=== PATIENT | male | born 1955 | race Caucasian/White ===

== ENCOUNTER 2022-09-29 07:35 | Day surgery (SDC) | payer OTHER, BC ==
[2022-09-24 13:36] VITALS: BMI 23.6
[2022-09-29] MEDS: PHENYLEPHRINE 2.5% OPTHALMIC DROP 2ML BOTTLE ONE ×3 (08:00→08:10)
[2022-09-29] MEDS: CYCLOPENTOLATE 2% OPHTH SOLN 2 ML BOTTLE ONE ×3 (08:00→08:10)
[2022-09-29] MEDS: CIPROFLOXACIN 0.3% EYE DROPS 5 ML BOTTLE ONE ×3 (08:00→08:10)
[2022-09-29] MEDS: TROPICAMIDE 1% OPHTH SOLN 15 ML BOTTLE ONE ×3 (08:00→08:10)
[2022-09-29] MEDS ORDERED: NEO/POLYMYX B SULF/DEXAMETH OPHTHALMIC 5ML BOTTLE ONE (08:52)
[2022-09-29] MEDS ORDERED: BSS (NA/CA/MG/K) BALANCED SALT SOLUTION OPHTH SOLN 15 ML BOTTLE ONE (08:52)
[2022-09-29] MEDS ORDERED: TETRACAINE 0.5% OPHTH SOLN 2 ML BOTTLE ONE (08:52)
[2022-09-29] MEDS ORDERED: LIDOCAINE 1% P/F 10 MG/ML VIAL ONE (08:52)
[2022-09-29] MEDS ORDERED: CARBACHOL 0.01% INTRA-OCULAR 1.5 ML VIAL ONE (08:52)
[2022-09-29] MEDS ORDERED: ONDANSETRON 4 MG/2 ML VIAL ONE (09:44)
[2022-09-29 10:17] VITALS: TEMP 97.8
[2022-09-29] MEDS ORDERED: MIDAZOLAM HCL 2 MG/2 ML SINGLE DOSE VIAL ONE (10:29)
[2022-09-29 10:48] VITALS: BP 110/65; PULSE 55; RESP 18
== END 2022-09-29 11:25 | disposition home or self-care (01) ==
LOC: FASU 07:35
PROVIDERS: ATTEND Ophthalmology
PROC: 08RJ3JZ Replacement of Right Lens with Synthetic Substitute, Percutaneous Approach (ICD-10-PCS; principal; 2022-09-29 09:43)
DX: H26.8 Other specified cataract (principal)
CPT/HCPCS: 66984; V2632

== ENCOUNTER 2023-05-26 07:46 | Day surgery (SDC) | payer OTHER, BC ==
[2023-05-23 15:07] VITALS: BMI 23.6
[2023-05-26] MEDS ORDERED: MIDAZOLAM HCL 2 MG/2 ML SINGLE DOSE VIAL ONE (07:52)
[2023-05-26] MEDS: TROPICAMIDE 1% OPHTH SOLN 15 ML BOTTLE ONE ×3 (08:20→08:30)
[2023-05-26] MEDS: PHENYLEPHRINE 2.5% OPTHALMIC DROP 2ML BOTTLE ONE ×3 (08:20→08:30)
[2023-05-26] MEDS: CIPROFLOXACIN HCL 0.3% OPHTH 2.5ML BOTTLE ONE ×3 (08:20→08:30)
[2023-05-26] MEDS: CYCLOPENTOLATE 2% OPHTH SOLN 2 ML BOTTLE ONE ×3 (08:20→08:30)
[2023-05-26] MEDS ORDERED: BSS (NA/CA/MG/K) BALANCED SALT SOLUTION OPHTH SOLN 15 ML BOTTLE ONE (09:26)
[2023-05-26] MEDS ORDERED: NEO/POLYMYX B SULF/DEXAMETH OPHTHALMIC 5ML BOTTLE ONE (09:26)
[2023-05-26] MEDS ORDERED: LIDOCAINE 1% P/F 10 MG/ML VIAL ONE (09:26)
[2023-05-26] MEDS ORDERED: CARBACHOL 0.01% INTRA-OCULAR 1.5 ML VIAL ONE (09:26)
[2023-05-26] MEDS ORDERED: TETRACAINE 0.5% OPHTH SOLN 2 ML BOTTLE ONE (09:26)
[2023-05-26 11:46] VITALS: BP 106/56; PULSE 55; RESP 16; TEMP 97.1
== END 2023-05-26 11:20 | disposition home or self-care (01) ==
LOC: FASU 07:46
PROVIDERS: ATTEND Ophthalmology
PROC: 08RK3JZ Replacement of Left Lens with Synthetic Substitute, Percutaneous Approach (ICD-10-PCS; principal; 2023-05-26 10:18)
DX: H26.8 Other specified cataract (principal)
CPT/HCPCS: 66984; V2632